=== PATIENT | female | born 1965 | race Caucasian/White ===

== ENCOUNTER 2017-09-02 23:42 | Emergency (ER) | payer BC ==
[~2017-09-02] VITALS: Ht 167.6 cm; Wt 60.5 kg
[2017-09-03] MEDS ORDERED: normal saline 1000ML IV soln IVB ONE (00:25)
[2017-09-03] MEDS ORDERED: ondansetron/PF 4mg/2ml inj IV ONE (00:25)
[2017-09-03] MEDS ORDERED: morphine 2 MG/ML inj. syringe IV ONE (00:25)
[2017-09-03] MEDS ORDERED: acetaminophen 325mg tablet PO ONE (00:25)
[2017-09-03 00:40] LABS: CLARITY,URINE Clear (Clear); COLOR,URINE Yellow (Yellow); GLUCOSE, URINE Negative (Neg); KETONES,URINE Negative (Neg); LEUKOCYTE ESTERASE ,URINE Negative (Neg); NITRITES, URINE Negative (Neg); OCCULT BLOOD,URINE Negative (Neg); PROTEIN,URINE Negative (Neg); UROBILINOGEN,URINE 0.2 E.U/dL (0.2-1.0)
[2017-09-03 00:41] LABS: UA COLLECTION TYPE CLN CATCH MIDSTREAM
[2017-09-03 01:07] LABS: BASOPHILS % (AUTO) 0.8 % (0-1); LYMPHOCYTES # (AUTO) 0.9 X10'3 (1.1-4.8); MONOCYTES # (AUTO) 0.3 X10'3 (0-0.9)
[2017-09-03 01:10] LABS: EOSINOPHILS % (AUTO) 0.4 % (0-6); HEMATOCRIT 41.5 % (35.0-45.0); HEMOGLOBIN 13.9 g/dl (12.0-16.0); LYMPHOCYTES % (AUTO) 36.6 % (21-51); MEAN CORPUSCULAR HEMOGLOBIN 28.9 PG (27.0-31.0); MEAN CORPUSCULAR HGB CONC 33.5 % (33.0-36.5); MEAN CORPUSCULAR VOLUME 86.5 FL (78-98); MEAN PLATELET VOLUME 10.4 FL (7.4-10.4); MONOCYTES % (AUTO) 14.1 % (2-12); NEUTROPHILS # (AUTO) 1.2 X10'3 (1.8-7.7); NEUTROPHILS % (AUTO) 48.1 % (42-75); PLATELET COUNT 133 X10'3 (140-440); RED CELL DISTRIBUTION WIDTH 12.8 % (11.5-14.5); WHITE BLOOD COUNT 2.4 X10'3 (4.5-11.0)
[2017-09-03 01:23] LABS: ALANINE AMINOTRANSFERASE 20 U/L (12-78); ALBUMIN 3.6 G/DL (3.4-5.0); ALBUMIN/GLOBULIN RATIO 0.9 (1.1-1.5); ALKALINE PHOSPHATASE 43 IU/L (46-116); ANION GAP 11 (8-16); ASPARTATE AMINO TRANSFERASE 26 U/L (10-37); BILIRUBIN,TOTAL 0.3 MG/DL (0.1-1.0); BLOOD UREA NITROGEN 7 MG/DL (7-18); BUN/CREATININE RATIO 10.1 (6.6-38.0); CALCIUM 8.8 MG/DL (8.5-10.1); CHLORIDE 98 MMOL/L (99-107); CREATININE 0.69 MG/DL (0.40-0.90); GLUCOSE 109 MG/DL (70-104); POTASSIUM 4.7 MMOL/L (3.5-5.1); SODIUM 133 MMOL/L (135-145); TOTAL CARBON DIOXIDE 24.2 MMOL/L (24-32); TOTAL PROTEIN 7.4 G/DL (6.4-8.2); eGFR 89 ML/MIN
[2017-09-03 01:25] LABS: TOTAL CELLS COUNTED 100
[2017-09-03 01:27] LABS: LARGE PLATELETS FEW; PLATELET ESTIMATE DECREASED
[2017-09-03] MEDS ORDERED: IBUP-1984 PO (02:27)
[2017-09-03] MEDS ORDERED: ONDA8TAB9 PO (02:27)
[2017-09-03] MEDS ORDERED: AZIT-63 PO (02:27)
[2017-09-03] MEDS ORDERED: GUAI473S11 PO (02:27)
[2017-09-03 02:48] VITALS: BP 124/62
== END 2017-09-03 02:56 | disposition home or self-care (01) ==
LOC: ER 23:42
DX: J40 Bronchitis, not specified as acute or chronic (principal); R11.2 Nausea with vomiting, unspecified; D72.819 Decreased white blood cell count, unspecified; D69.6 Thrombocytopenia, unspecified; Z90.710 Acquired absence of both cervix and uterus
CPT/HCPCS: 36415; 71045; 80053; 81003; 85025; 87081; 87880; 96361; 96374; 99285; J2405; J7030

== ENCOUNTER 2021-06-29 19:56 | Emergency (ER) | payer BC ==
[~2021-06-29] VITALS: Ht 165.1 cm; Wt 65.0 kg
[~2021-06-29 19:56] MED LIST: ONDA8TAB9 PO
[2021-06-29] MEDS ORDERED: naproxen 500mg tablet PO ONE (20:20)
[2021-06-29] MEDS ORDERED: HYDROcodone/acetaminophen 10/325mg tab PO ONE (20:25)
[2021-06-29] MEDS ORDERED: HYDR-3965 PO (20:35)
[2021-06-29 20:41] VITALS: BP 150/94
== END 2021-06-29 20:43 | disposition home or self-care (01) ==
LOC: ER 19:57
DX: S42.201A Unspecified fracture of upper end of right humerus, initial encounter for closed fracture (principal); M25.511 Pain in right shoulder; Z90.710 Acquired absence of both cervix and uterus; Z88.1 Allergy status to other antibiotic agents; Z79.899 Other long term (current) drug therapy; W19.XXXA Unspecified fall, initial encounter; Y93.89 Activity, other specified; Y92.89 Other specified places as the place of occurrence of the external cause; Y99.8 Other external cause status
CPT/HCPCS: 73030; 99284